=== PATIENT | female | born 1985 | race Caucasian/White ===

== ENCOUNTER 2019-05-08 12:38 | Emergency (ER) | payer OTHER ==
[~2019-05-08] VITALS: Ht 154.9 cm; Wt 56.7 kg
[2019-05-08 12:58] VITALS: BP 140/87
--- NOTE | 2019-05-08 13:21 | NUR ---
PT STATES SHE WAS SENT BY HER DIRECTOR FOR FURTHER EVALUATION OF CONGESTION AFTER BEING EXPOSED TO DUST PARTICLES FROM THE AIR CONDITIONING VENT. DENIES SOB, RR EVEN AND UNLABORED. VSS. ERMD TO EVALUATE PT
--- NOTE | 2019-05-08 13:24 | NUR ---
DR DAVILA EVALUATING PT AT BEDSIDE
[2019-05-08 13:48] VITALS: BP 134/86
--- NOTE | 2019-05-08 13:49 | NUR ---
Patient discharged with v/s stable. Written and verbal after care instructions given and explained. Patient verbalized understanding. Ambulatory with steady gait. All questions addressed prior to discharge. Advised to follow up with PMD.
== END 2019-05-08 13:49 | disposition home or self-care (01) ==
LOC: MED 12:38
DX: R09.81 Nasal congestion (principal)
CPT/HCPCS: 81025; 99283